=== PATIENT | male | born 1935 | race Caucasian/White ===

== ENCOUNTER 2019-05-14 09:46 | Observation (INO) ==
[2019-05-14] MEDS ORDERED: NORMAL SALINE 1,000 ML IV ONE (10:07)
[2019-05-14 10:29] LABS: Hematocrit 33.2 % (42.0-52.0); Hemoglobin 10.5 gm/dL (13.5-18.0); Mean Corpuscular Hemoglobin 29.4 pg (27-31); Mean Corpuscular Hgb Conc 31.6 g/dl (32-36); Mean Platelet Volume 8.9 fl (8-11.3); Neutrophil # 10.6 K/mm3 (1.3-6.0); Neutrophil % 75.8 % (42-75.0); Platelet Count 489 K/mm3 (150-450); Red Blood Count 3.57 M/mm3 (4.7-6.0); Red Cell Distribution Width 15.8 % (11.5-14.0); White Blood Count 13.9 K/mm3 (4.0-10.5)
[2019-05-14 10:43] LABS: Urine Bilirubin Negative (NEGATIVE); Urine Blood Negative /ul (NEGATIVE); Urine Ketone Negative (NEGATIVE); Urine Nitrite Negative (NEGATIVE); Urine Protein 15 mg/dL (NEGATIVE); Urine Specific Gravity 1.025 SP.GR. (1.005-1.030); Urine Urobilinogen Normal (NORMAL); Urine pH 5.5 pH (5.0-7.0)
[2019-05-14 10:43] LABS: Albumin * 3.1 gm/dl (3.4-5.0); Anion Gap 15.5 mmol/L (6.8-13.8); BUN/Creatinine Ratio 13.3 (9.0-21.6); Bilirubin, Total 0.2 mg/dL (0.0-1.1); CRP 0.5 mg/dL (0.0-0.9); Ca. Corrected For Albumin 9.2 mg/dL (8.4-10.2); Calcium * 8.8 mg/dL (7.9-10.9); Carbon Dioxide 26.8 mmol/L (24-32.6); Potassium 4.3 mmol/L (3.4-4.6); Total Protein 6.9 gm/dL (6.2-8.2)
[2019-05-14 11:07] LABS: Urine Appearance Clear (CLEAR); Urine Bacteria TRACE; Urine Color Yellow; Urine RBC None Seen /hpf (0-5); Urine WBC 0-5 /hpf (0-5)
[2019-05-14 11:25] LABS: Amylase * 21 U/L (25-115); Lipase 101 U/L (73-393)
[2019-05-14 11:42] LABS: Prothrombin Time (Patient) 14.3 Seconds (9.1-10.7)
[2019-05-14 11:51] LABS: INR 1.47 INR (0.92-1.08)
[2019-05-14] MEDS ORDERED: cefTRIAXone SODIUM 1,000 MG/100 ML BAG IV ONE (12:08)
--- NOTE | 2019-05-14 12:21 | ERNOTE ---
Medical Problem HPI - Narrative Date of Service: 05/14/19 - General Chief Complaint: General Assessment Time Seen by Provider: 05/14/19 09:55 Source: patient, EMS Exam Limitations: dementia - Immun/Allergies/Home Medications Immunizations: IMMUNIZATION HX Immunizations Up to Date No History of Influenza Vaccine More Information Required Hx Pneumococcal Vaccination More Information Required Allergies/Adverse Reactions: Allergies No Known Allergies Allergy (Verified 03/04/19 10:58) Home Medications: HOME MEDICATIONS Carvedilol [Coreg] 25 mg PO BID 03/04/19 [Last Taken Unknown] Cholecalciferol (Vitamin D3) [Vitamin D3] 1,000 unit PO DAILY 03/04/19 [Last Taken Unknown] Insulin Glargine,Hum.rec.anlog [Lantus] 35 units SC QAM 03/04/19 [Last Taken Unknown] Levothyroxine Sodium [Synthroid] 25 mcg PO DAILY 03/04/19 [Last Taken Unknown] amLODIPine BESYLATE [Norvasc] 10 mg PO DAILY 03/04/19 [Last Taken Unknown] metFORMIN HCL [Metformin HCl] 500 mg PO DAILY 03/04/19 [Last Taken Unknown] Acetaminophen [Tylenol] 650 mg PO Q6H PRN 05/14/19 [Last Taken Unknown] Aspirin [Aspirin EC] 81 mg PO DAILY 05/14/19 [Last Taken Unknown] Atorvastatin Calcium 40 mg PO DAILY 05/14/19 [Last Taken Unknown] Cinnamon Bark [Cinnamon] 500 mg PO BID 05/14/19 [Last Taken Unknown] Colchicine 0.6 mg PO DAILY 05/14/19 [Last Taken Unknown] Cyanocobalamin [Vitamin B-12] 500 mcg PO DAILY 05/14/19 [Last Taken Unknown] Diclofenac Sodium [Diclofenac 1% Topical Gel] 1 appl TOPICAL QID PRN 05/14/19 [Last Taken Unknown] Enoxaparin Sodium [Lovenox] 80 mg SC Q12H 05/14/19 [Last Taken Unknown] Ertapenem Sodium [Ertapenem] 1 gm IVP .Q24HRS 05/14/19 [Last Taken Unknown] Ferrous Sulfate 650 mg PO DAILY 05/14/19 [Last Taken Unknown] Finasteride [Proscar] 5 mg PO 05/14/19 [Last Taken Unknown] Furosemide 20 mg PO DAILY 05/14/19 [Last Taken Unknown] Hydrochlorothiazide [Hydrodiuril] 25 mg PO DAILY 05/14/19 [Last Taken Unknown] Hydrophilic Ointment [Aquaphilic Ointment] 1 appl TOPICAL BID PRN 05/14/19 [Last Taken Unknown] Isosorbide Mononitrate [Imdur] 30 mg PO DAILY 05/14/19 [Last Taken Unknown] Lidocaine [Lidoderm 5%] 1 patch TOPICAL BID PRN 05/14/19 [Last Taken Unknown] Losartan Potassium [Cozaar] 100 mg PO DAILY 05/14/19 [Last Taken Unknown] Nitroglycerin [Nitrostat] 0.4 mg SUBLINGUAL Q5MIN PRN 05/14/19 [Last Taken Unknown] Octreotide Acetate,Mi-Spheres [Sandostatin Lar Depot] 30 mg IM .Q28 DAYS 05/14/19 [Last Taken 05/02/19] Pantoprazole Sodium [Protonix] 40 mg PO DAILY 05/14/19 [Last Taken Unknown] Pregabalin [Lyrica] 75 mg PO BID 05/14/19 [Last Taken Unknown] Sodium Hypochlorite [Anasept Skin-Wound Cleanser] 237 ml IRRIGATION BID 05/14/19 [Last Taken Unknown] Tamsulosin HCl [Flomax] 0.8 mg PO DAILY 05/14/19 [Last Taken Unknown] Vancomycin HCl [Vancomycin] 1 gm IVP .Q24HRS 05/14/19 [Last Taken Unknown] Warfarin Sodium 3 mg PO MOWEFR 05/14/19 [Last Taken Unknown] Warfarin Sodium 4 mg PO SUTUTHSA 05/14/19 [Last Taken Unknown] oxyCODONE HCL/ACETAMINOPHEN [Percocet 5 MG/325 MG] 1 tab PO Q4H PRN 05/14/19 [Last Taken Unknown] traZODone HCL [Trazodone HCl] 50 mg PO HS PRN 05/14/19 [Last Taken Unknown] - History of Present History Narrative: patient presents ti ed with c/[facility] has had ongoing treatment forleg ulcers Timing: constant, getting worse Review of Systems - Review of Systems Constitutional: Present: See HPI EYE: Present: no symptoms reported ENT: Present: no symptoms reported Respiratory: Present: no symptoms reported Cardiology: Present: no symptoms reported Gastrointestinal/Abdominal: Present: no symptoms reported Genitourinary: Present: no symptoms reported Musculoskeletal: Present: no symptoms reported Skin: Present: See HPI Neurological: Present: no symptoms reported Endocrine: Present: no symptoms reported, unexplained weight loss Hematologic/Lymphatic: Present: no symptoms reported Psych: Present: no symptoms reported Medical History (Last Reviewed 03/04/19 @ 10:58 by Mayuri Hodge RN) CAD (coronary artery disease) Hx of diabetes mellitus Hx of hyperlipidemia Hx of primary hypertension Hx of thyroid cancer Surgical History: Surgical History (Last Reviewed 03/04/19 @ 10:58 by Mayuri Hodge RN) History of back surgery History of thyroid surgery Hx of heart surgery Hx of lymph node excision Status post femoral-popliteal bypass surgery Family History: Family History (Last Reviewed 03/04/19 @ 10:58 by Mayuri Hodge RN) Other No pertinent family history Social History: (Last Reviewed 03/04/19 @ 10:58 by Mayuri Hodge RN) Tobacco: Smoking Status: Former smoker Physical Exam - Physical Exam General Appearance: Present: mild distress Head Exam: Present: normal inspection, no evidence of injury Eye Exam: Normal inspection: bilateral, PERRL: bilateral, EOMI: bilateral Ears, Nose, Throat: Present: normal ENT inspection, normal pharynx Neck: Present: normal inspection, nontender Respiratory: Present: no respiratory distress, normal breath sounds, no accessory muscle use, chest nontender, lungs clear Cardiovascular/Chest: Present: regular rate, rhythm, no murmur, normal peripheral pulses Gastrointestinal/Abdominal: Present: normal bowel sounds, nontender, nondistended, no organomegaly Back Exam: Present: normal inspection, normal range of motion, no CVA tenderness, no vertebral tenderness Extremity Exam: Present: normal except - - healing ulcers omlower left leg and groin Neurological Exam: Present: alert, oriented, normal mood/affect, no motor/sensory deficits Skin Exam: Present: normal color, warm/dry Lymphatic Exam: Present: no adenopathy Progress - Date and Time Seen: Date and Time: 05/14/19 12:18 condition [email or web address] discussed with dr barriga, to admit to observation pending cultures and repeat lactic acid - Results and Orders Patient's Lab Results:: I have reviewed the patient's lab results. - Vital Signs Patient's Vital Signs:: I have reviewed the patient's vital signs. Vital Signs: Vital Signs 05/14/19 09:47 05/14/19 10:07 05/14/19 10:23 Temperature 36.0 C Pulse Rate 98 98 98 Respiratory Rate 17 13 11 L Blood Pressure 154/74 H 143/68 148/65 O2 Sat by Pulse Oximetry 98 96 97 05/14/19 10:37 05/14/19 10:58 05/14/19 11:14 Temperature Pulse Rate 97 109 H 97 Respiratory Rate 16 10 L 14 Blood Pressure 141/64 134/74 136/72 O2 Sat by Pulse Oximetry 98 99 98 05/14/19 11:29 05/14/19 11:43 Temperature Pulse Rate 94 96 Respiratory Rate 12 14 Blood Pressure 146/65 151/62 H O2 Sat by Pulse Oximetry 98 99 - EKG EKG #1 EKG: NSR - X-Ray X-Ray #1 X-Ray: chest Interpretation: Discd w/ radiologist - no acute process - CT/Ultrasound CT/Ultrasound Narrative: no acute process - Progress/Reassessment Chief Complaint: General Assessment Plan - Plan Plan: to admit to observation Departure Clinical Impression: Weakness, Ulcer of leg due to secondary diabetes mellitus - Departure Disposition: Still a patient Condition: Fair
[2019-05-14] MEDS ORDERED: NORMAL SALINE 1,000 ML IV PRN (12:46)
--- NOTE | 2019-05-14 15:00 | HP ---
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) CAD (coronary artery disease) Hx of diabetes mellitus Hx of hyperlipidemia Hx of primary hypertension Hx of thyroid cancer Surgical History: Surgical History (Last Updated 05/14/19 @ 14:34 by Sandra Peterson RN) History of back surgery History of thyroid surgery Hx of heart surgery Hx of lymph node excision Status post femoral-popliteal bypass surgery Onset Date: ~01/31/19 Family History: Family History (Last Updated 05/14/19 @ 14:34 by Sandra Peterson RN) Mother Diabetes Father Diabetes Social History: (Last Updated 05/14/19 @ 14:35 by Sandra Peterson RN) Tobacco: Smoking Status: Former smoker Years smoked: 40 Tobacco: How many years used: 40 how long ago did patient quit smokin passive smoking exposure: No second hand exposure: No Immunizations: IMMUNIZATION HX Immunizations Up to Date No History of Influenza Vaccine More Information Required Hx Pneumococcal Vaccination More Information Required Allergies/Adverse Reactions: Allergies Allergy/AdvReac Type Severity Reaction Status Date / Time No Known Allergies Allergy Verified 05/14/19 14:36 Home Medications: HOME MEDICATIONS Carvedilol [Coreg] 25 mg PO BID 03/04/19 [Last Taken Unknown] Cholecalciferol (Vitamin D3) [Vitamin D3] 1,000 unit PO DAILY 03/04/19 [Last Taken Unknown] Insulin Glargine,Hum.rec.anlog [Lantus] 35 units SC QAM 03/04/19 [Last Taken Unknown] Levothyroxine Sodium [Synthroid] 25 mcg PO DAILY 03/04/19 [Last Taken Unknown] amLODIPine BESYLATE [Norvasc] 10 mg PO DAILY 03/04/19 [Last Taken Unknown] metFORMIN HCL [Metformin HCl] 500 mg PO DAILY 03/04/19 [Last Taken Unknown] Acetaminophen [Tylenol] 650 mg PO Q6H PRN 05/14/19 [Last Taken Unknown] Aspirin [Aspirin EC] 81 mg PO DAILY 05/14/19 [Last Taken Unknown] Atorvastatin Calcium 40 mg PO DAILY 05/14/19 [Last Taken Unknown] Cinnamon Bark [Cinnamon] 500 mg PO BID 05/14/19 [Last Taken Unknown] Colchicine 0.6 mg PO DAILY 05/14/19 [Last Taken Unknown] Cyanocobalamin [Vitamin B-12] 500 mcg PO DAILY 05/14/19 [Last Taken Unknown] Diclofenac Sodium [Diclofenac 1% Topical Gel] 1 appl TOPICAL QID PRN 05/14/19 [Last Taken Unknown] Enoxaparin Sodium [Lovenox] 80 mg SC Q12H 05/14/19 [Last Taken Unknown] Ertapenem Sodium [Ertapenem] 1 gm IVP .Q24HRS 05/14/19 [Last Taken Unknown] Ferrous Sulfate 650 mg PO DAILY 05/14/19 [Last Taken Unknown] Finasteride [Proscar] 5 mg PO DAILY 05/14/19 [Last Taken Unknown] Furosemide 20 mg PO DAILY 05/14/19 [Last Taken Unknown] Hydrochlorothiazide [Hydrodiuril] 25 mg PO DAILY 05/14/19 [Last Taken Unknown] Hydrophilic Ointment [Aquaphilic Ointment] 1 appl TOPICAL BID PRN 05/14/19 [Last Taken Unknown] Isosorbide Mononitrate [Imdur] 30 mg PO DAILY 05/14/19 [Last Taken Unknown] Lidocaine [Lidoderm 5%] 1 patch TOPICAL BID PRN 05/14/19 [Last Taken Unknown] Losartan Potassium [Cozaar] 100 mg PO DAILY 05/14/19 [Last Taken Unknown] Nitroglycerin [Nitrostat] 0.4 mg SUBLINGUAL Q5MIN PRN 05/14/19 [Last Taken Unknown] Octreotide Acetate,Mi-Spheres [Sandostatin Lar Depot] 30 mg IM .Q28 DAYS 05/14/19 [Last Taken 05/02/19] Pantoprazole Sodium [Protonix] 40 mg PO DAILY 05/14/19 [Last Taken Unknown] Pregabalin [Lyrica] 75 mg PO BID 05/14/19 [Last Taken Unknown] Sodium Hypochlorite [Anasept Skin-Wound Cleanser] 237 ml IRRIGATION BID 05/14/19 [Last Taken Unknown] Tamsulosin HCl [Flomax] 0.8 mg PO DAILY 05/14/19 [Last Taken Unknown] Vancomycin HCl [Vancomycin] 1 gm IVP .Q24HRS 05/14/19 [Last Taken Unknown] Warfarin Sodium 3 mg PO MOWEFR 05/14/19 [Last Taken Unknown] Warfarin Sodium 4 mg PO SUTUTHSA 05/14/19 [Last Taken Unknown] oxyCODONE HCL/ACETAMINOPHEN [Percocet 5 MG/325 MG] 1 tab PO Q4H PRN 05/14/19 [Last Taken Unknown] traZODone HCL [Trazodone HCl] 50 mg PO HS PRN 05/14/19 [Last Taken Unknown] Exam - Exam Vital Signs: Vital Signs - Last Taken Temp 36.2 C 05/14/19 14:20 Pulse 99 05/14/19 14:20 Resp 20 05/14/19 14:20 BP 142/53 05/14/19 14:20 Pulse Ox 97 05/14/19 14:20 Diagnostic Studies: Abnormal Lab Results 05/14/19 05/14/19 05/14/19 Range/Units 10:20 10:20 10:20 WBC 13.9 H (4.0-10.5) K/mm3 RBC 3.57 L (4.7-6.0) M/mm3 Hgb 10.5 L (13.5-18.0) gm/dL Hct 33.2 L (42.0-52.0) % MCHC 31.6 L (32-36) g/dl RDW 15.8 H (11.5-14.0) % Plt Count 489 H (150-450) K/mm3 Immature Gran % (Auto) 0.50 H (0.001-0.429) % Immature Gran # (Auto) 0.07 H (0.000-0.0310) K/mm3 Neutrophils % 75.8 H (42-75.0) % Lymphocytes % 12.4 L (20-51) % Neutrophils # 10.6 H (1.3-6.0) K/mm3 Monocytes # 1.3 H (0.0-1.0) k/mm3 PT (9.1-10.7) Seconds INR (Anticoag Therapy) (0.92-1.08) INR Sodium 144 H (132-142) mmol/L Plasma Sodium 146 H (130-142) mmol/L Anion Gap 15.5 H (6.8-13.8) mmol/L Est GFR (Non-Af Amer) 57 L D (60-130) mL/min Random Glucose 234 H (70-110) mg/dL Lactic Acid, Venous 2.1 H (0.4-2.0) mmol/L Albumin 3.1 L (3.4-5.0) gm/dl Amylase (25-115) U/L Urine Protein (NEGATIVE) mg/dL 05/14/19 05/14/19 05/14/19 Range/Units 10:20 10:20 10:35 WBC (4.0-10.5) K/mm3 RBC (4.7-6.0) M/mm3 Hgb (13.5-18.0) gm/dL Hct (42.0-52.0) % MCHC (32-36) g/dl RDW (11.5-14.0) % Plt Count (150-450) K/mm3 Immature Gran % (Auto) (0.001-0.429) % Immature Gran # (Auto) (0.000-0.0310) K/mm3 Neutrophils % (42-75.0) % Lymphocytes % (20-51) % Neutrophils # (1.3-6.0) K/mm3 Monocytes # (0.0-1.0) k/mm3 PT 14.3 H (9.1-10.7) Seconds INR (Anticoag Therapy) 1.47 H (0.92-1.08) INR Sodium (132-142) mmol/L Plasma Sodium (130-142) mmol/L Anion Gap (6.8-13.8) mmol/L Est GFR (Non-Af Amer) (60-130) mL/min Random Glucose (70-110) mg/dL Lactic Acid, Venous (0.4-2.0) mmol/L Albumin (3.4-5.0) gm/dl Amylase 21 L (25-115) U/L Urine Protein 15 H (NEGATIVE) mg/dL Laboratory Results WBC 13.9 K/mm3 (4.0-10.5) H 05/14/19 10:20 RBC 3.57 M/mm3 (4.7-6.0) L 05/14/19 10:20 Hgb 10.5 gm/dL (13.5-18.0) L 05/14/19 10:20 Hct 33.2 % (42.0-52.0) L 05/14/19 10:20 MCV 93.0 fl (78-100) 05/14/19 10:20 MCH 29.4 pg (27-31) 05/14/19 10:20 MCHC 31.6 g/dl (32-36) L 05/14/19 10:20 RDW 15.8 % (11.5-14.0) H 05/14/19 10:20 Plt Count 489 K/mm3 (150-450) H 05/14/19 10:20 MPV 8.9 fl (8-11.3) 05/14/19 10:20 Immature Gran % (Auto) 0.50 % (0.001-0.429) H 05/14/19 10:20 Immature Gran # (Auto) 0.07 K/mm3 (0.000-0.0310) H 05/14/19 10:20 Neutrophils % 75.8 % (42-75.0) H 05/14/19 10:20 Lymphocytes % 12.4 % (20-51) L 05/14/19 10:20 Monocytes % 9.0 % (0.0-9) 05/14/19 10:20 Eosinophils % 1.6 % (0.0-3.0) 05/14/19 10:20 Basophils % 0.7 % (0.0-1.0) 05/14/19 10:20 Nucleated RBC % 0.0 k/mm3 (0-1) 05/14/19 10:20 Neutrophils # 10.6 K/mm3 (1.3-6.0) H 05/14/19 10:20 Lymphocytes # 1.73 k/mm3 (1.5-3.5) 05/14/19 10:20 Monocytes # 1.3 k/mm3 (0.0-1.0) H 05/14/19 10:20 Eosinophils # 0.2 k/mm3 (0.0-0.7) 05/14/19 10:20 Absolute Basophils 0.1 k/mm3 (0.0-0.1) 05/14/19 10:20 PT 14.3 Seconds (9.1-10.7) H 05/14/19 10:20 INR (Anticoag Therapy) 1.47 INR (0.92-1.08) H 05/14/19 10:20 PTT ([place]) 29.2 Seconds (24-32) 05/14/19 10:20 Sodium 144 mmol/L (132-142) H 05/14/19 10:20 Plasma Sodium 146 mmol/L (130-142) H 05/14/19 10:20 Potassium 4.3 mmol/L (3.4-4.6) 05/14/19 10:20 Chloride 106 mmol/L (97-106) 05/14/19 10:20 Carbon Dioxide 26.8 mmol/L (24-32.6) 05/14/19 10:20 Anion Gap 15.5 mmol/L (6.8-13.8) H 05/14/19 10:20 BUN 17 mg/dL (6-23) 05/14/19 10:20 Creatinine 1.28 mg/dL (0.4-1.4) 05/14/19 10:20 Est GFR (Non-Af Amer) 57 mL/min (60-130) L D 05/14/19 10:20 BUN/Creatinine Ratio 13.3 (9.0-21.6) 05/14/19 10:20 Random Glucose 234 mg/dL (70-110) H 05/14/19 10:20 Lactic Acid, Venous 1.8 mmol/L (0.4-2.0) 05/14/19 14:20 Calcium 8.8 mg/dL (7.9-10.9) 05/14/19 10:20 Calcium Adj for Albumin 9.2 mg/dL (8.4-10.2) 05/14/19 10:20 Total Bilirubin 0.2 mg/dL (0.0-1.1) 05/14/19 10:20 AST 31 U/L (0-48) 05/14/19 10:20 ALT 24 U/L (19-67) 05/14/19 10:20 Alkaline Phosphatase 93 U/L (50-170) 05/14/19 10:20 C-Reactive Prot, Quant 0.5 mg/dL (0.0-0.9) 05/14/19 10:20 Total Protein 6.9 gm/dL (6.2-8.2) 05/14/19 10:20 Albumin 3.1 gm/dl (3.4-5.0) L 05/14/19 10:20 Amylase 21 U/L (25-115) L 05/14/19 10:20 Lipase 101 U/L (73-393) 05/14/19 10:20 Urine Color Yellow 05/14/19 10:35 Urine Appearance Clear (CLEAR) 05/14/19 10:35 Urine pH 5.5 pH (5.0-7.0) 05/14/19 10:35 Ur Specific [place] 1.025 SP.GR. (1.005-1.030) 05/14/19 10:35 Urine Protein 15 mg/dL (NEGATIVE) H 05/14/19 10:35 Urine Glucose (UA) Negative mg/dL (NEGATIVE) 05/14/19 10:35 Urine Ketones Negative mg/dL (NEGATIVE) 05/14/19 10:35 Urine Blood Negative /ul (NEGATIVE) 05/14/19 10:35 Urine Nitrate Negative (NEGATIVE) 05/14/19 10:35 Urine Bilirubin Negative mg/dl (NEGATIVE) 05/14/19 10:35 Prot Sulfosalicylic Acd Negative mg/dL (0) 05/14/19 10:35 Urine Urobilinogen Normal EU/dl (NORMAL) 05/14/19 10:35 Ur Leukocyte Esterase Negative /ul (NEGATIVE) 05/14/19 10:35 Urine RBC None seen /hpf (0-5) 05/14/19 10:35 Urine WBC 0-5 /hpf (0-5) 05/14/19 10:35 Ur Epithelial Cells 0-5 /hpf (0-5) 05/14/19 10:35 Urine Bacteria Trace (NONE) 05/14/19 10:35 Urine Culture Comments No culture indicated 05/14/19 10:35
--- NOTE | 2019-05-14 15:26 | HP ---
Chief Complaint - Chief Complaint Date of Service: 05/14/19 Time of Service: 15:01 Chief Complaint: Altered, shaking History of Present Illness: 83-year-old male presented to the ER with altered mental status, rigors, chronic draining ulcer. Patient has significantly worsened from a cognitive standpoint over the last few days though per family he is normally "very sharp and with it". Patient recently discharged from the [facility] in [place] for this draining ulcer, home on IV abx through a pic line. He has an elevated WBC count, elevated lactic acid, and large amounts of purulent drainage from the thigh ulcer. Family very concerned that he is unable to answer routine questions that he normally has no issues with. He has been afebrile though he has been tachycardic. He was given a gram of rochephin in the ER. 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) CAD (coronary artery disease) Hx of diabetes mellitus Hx of hyperlipidemia Hx of primary hypertension Hx of thyroid cancer Surgical History: Surgical History (Last Updated 05/14/19 @ 14:34 by Sandra Peterson RN) History of back surgery History of thyroid surgery Hx of heart surgery Hx of lymph node excision Status post femoral-popliteal bypass surgery Onset Date: ~01/31/19 Family History: Family History (Last Updated 05/14/19 @ 14:34 by Sandra Peterson RN) Mother Diabetes Father Diabetes Social History: (Last Updated 05/14/19 @ 14:35 by Sandra Peterson RN) Tobacco: Smoking Status: Former smoker Years smoked: 40 Tobacco: How many years used: 40 how long ago did patient quit smokin passive smoking exposure: No second hand exposure: No Review Of Systems (GEN) - Review of Systems Generalized/Overall Review: Present: Weakness, Chills, Fatigue EENTM: Present: No Symptoms Reported Respiratory: Absent: Cough, Shortness of Breath Cardiac: Absent: Chest Pain, Edema Abdominal: Present: No Symptoms Reported Genitourinary: Present: No Symptoms Reported Musculoskeletal: Present: Muscle Pain Neurological: Absent: Numbness, Tingling, Weakness Skin: Present: Other - large purulent draining ulcer, left medial thigh near scrotum Immunizations: IMMUNIZATION HX Immunizations Up to Date No History of Influenza Vaccine More Information Required Hx Pneumococcal Vaccination More Information Required Allergies/Adverse Reactions: Allergies Allergy/AdvReac Type Severity Reaction Status Date / Time No Known Allergies Allergy Verified 05/14/19 14:36 Home Medications: HOME MEDICATIONS Carvedilol [Coreg] 25 mg PO BID 03/04/19 [Last Taken Unknown] Cholecalciferol (Vitamin D3) [Vitamin D3] 1,000 unit PO DAILY 03/04/19 [Last Taken Unknown] Insulin Glargine,Hum.rec.anlog [Lantus] 35 units SC QAM 03/04/19 [Last Taken Un known] Levothyroxine Sodium [Synthroid] 25 mcg PO DAILY 03/04/19 [Last Taken Unknown] amLODIPine BESYLATE [Norvasc] 10 mg PO DAILY 03/04/19 [Last Taken Unknown] metFORMIN HCL [Metformin HCl] 500 mg PO DAILY 03/04/19 [Last Taken Unknown] Acetaminophen [Tylenol] 650 mg PO Q6H PRN 05/14/19 [Last Taken Unknown] Aspirin [Aspirin EC] 81 mg PO DAILY 05/14/19 [Last Taken Unknown] Atorvastatin Calcium 40 mg PO DAILY 05/14/19 [Last Taken Unknown] Cinnamon Bark [Cinnamon] 500 mg PO BID 05/14/19 [Last Taken Unknown] Colchicine 0.6 mg PO DAILY 05/14/19 [Last Taken Unknown] Cyanocobalamin [Vitamin B-12] 500 mcg PO DAILY 05/14/19 [Last Taken Unknown] Diclofenac Sodium [Diclofenac 1% Topical Gel] 1 appl TOPICAL QID PRN 05/14/19 [Last Taken Unknown] Enoxaparin Sodium [Lovenox] 80 mg SC Q12H 05/14/19 [Last Taken Unknown] Ertapenem Sodium [Ertapenem] 1 gm IVP .Q24HRS 05/14/19 [Last Taken Unknown] Ferrous Sulfate 650 mg PO DAILY 05/14/19 [Last Taken Unknown] Finasteride [Proscar] 5 mg PO DAILY 05/14/19 [Last Taken Unknown] Furosemide 20 mg PO DAILY 05/14/19 [Last Taken Unknown] Hydrochlorothiazide [Hydrodiuril] 25 mg PO DAILY 05/14/19 [Last Taken Unknown] Hydrophilic Ointment [Aquaphilic Ointment] 1 appl TOPICAL BID PRN 05/14/19 [Last Taken Unknown] Isosorbide Mononitrate [Imdur] 30 mg PO DAILY 05/14/19 [Last Taken Unknown] Lidocaine [Lidoderm 5%] 1 patch TOPICAL BID PRN 05/14/19 [Last Taken Unknown] Losartan Potassium [Cozaar] 100 mg PO DAILY 05/14/19 [Last Taken Unknown] Nitroglycerin [Nitrostat] 0.4 mg SUBLINGUAL Q5MIN PRN 05/14/19 [Last Taken Unknown] Octreotide Acetate,Mi-Spheres [Sandostatin Lar Depot] 30 mg IM .Q28 DAYS 05/14/19 [Last Taken 05/02/19] Pantoprazole Sodium [Protonix] 40 mg PO DAILY 05/14/19 [Last Taken Unknown] Pregabalin [Lyrica] 75 mg PO BID 05/14/19 [Last Taken Unknown] Sodium Hypochlorite [Anasept Skin-Wound Cleanser] 237 ml IRRIGATION BID 05/14/19 [Last Taken Unknown] Tamsulosin HCl [Flomax] 0.8 mg PO DAILY 05/14/19 [Last Taken Unknown] Vancomycin HCl [Vancomycin] 1 gm IVP .Q24HRS 05/14/19 [Last Taken Unknown] Warfarin Sodium 3 mg PO MOWEFR 05/14/19 [Last Taken Unknown] Warfarin Sodium 4 mg PO SUTUTHSA 05/14/19 [Last Taken Unknown] oxyCODONE HCL/ACETAMINOPHEN [Percocet 5 MG/325 MG] 1 tab PO Q4H PRN 05/14/19 [Last Taken Unknown] traZODone HCL [Trazodone HCl] 50 mg PO HS PRN 05/14/19 [Last Taken Unknown] Exam - Exam Vital Signs: Vital Signs - Last Taken Temp 36.2 C 05/14/19 14:20 Pulse 99 05/14/19 14:20 Resp 20 05/14/19 14:20 BP 142/53 05/14/19 14:20 Pulse Ox 97 05/14/19 14:20 Constitutional: Present: Alert, Cooperative, Elderly. Absent: Oriented x3 - x2 ENT Exam: Present: hearing grossly normal. Absent: nasal congestion, nasal drainage Eye Exam: bilateral eye: normal inspection, PERRL Neck: Present: non-tender, supple Respiratory: Present: lungs clear, normal breath sounds Cardiovascular/Chest: Present: tachycardia. Absent: systolic murmur Abdomen: Present: Normal bowel sounds, soft, nontender Extremity: Present: swelling, other - healing incision left leg for fem/pop transfer meidal thigh to medial ankle. Ulcers at origin and distal location of incision. Origin of incision has large draining purulent ulcer Skin Exam: Present: diaphoresis. Absent: skin rash Neurologic: Present: alert. Absent: oriented x 3 - x2 Appearance: Present: impaired insight Eye contact: Present: avoids eye contact Diagnostic Studies: Abnormal Lab Results 05/14/19 05/14/19 05/14/19 Range/Units 10:20 10:20 10:20 WBC 13.9 H (4.0-10.5) K/mm3 RBC 3.57 L (4.7-6.0) M/mm3 Hgb 10.5 L (13.5-18.0) gm/dL Hct 33.2 L (42.0-52.0) % MCHC 31.6 L (32-36) g/dl RDW 15.8 H (11.5-14.0) % Plt Count 489 H (150-450) K/mm3 Immature Gran % (Auto) 0.50 H (0.001-0.429) % Immature Gran # (Auto) 0.07 H (0.000-0.0310) K/mm3 Neutrophils % 75.8 H (42-75.0) % Lymphocytes % 12.4 L (20-51) % Neutrophils # 10.6 H (1.3-6.0) K/mm3 Monocytes # 1.3 H (0.0-1.0) k/mm3 PT (9.1-10.7) Seconds INR (Anticoag Therapy) (0.92-1.08) INR Sodium 144 H (132-142) mmol/L Plasma Sodium 146 H (130-142) mmol/L Anion Gap 15.5 H (6.8-13.8) mmol/L Est GFR (Non-Af Amer) 57 L D (60-130) mL/min Random Glucose 234 H (70-110) mg/dL Lactic Acid, Venous 2.1 H (0.4-2.0) mmol/L Albumin 3.1 L (3.4-5.0) gm/dl Amylase (25-115) U/L Urine Protein (NEGATIVE) mg/dL 05/14/19 05/14/19 05/14/19 Range/Units 10:20 10:20 10:35 WBC (4.0-10.5) K/mm3 RBC (4.7-6.0) M/mm3 Hgb (13.5-18.0) gm/dL Hct (42.0-52.0) % MCHC (32-36) g/dl RDW (11.5-14.0) % Plt Count (150-450) K/mm3 Immature Gran % (Auto) (0.001-0.429) % Immature Gran # (Auto) (0.000-0.0310) K/mm3 Neutrophils % (42-75.0) % Lymphocytes % (20-51) % Neutrophils # (1.3-6.0) K/mm3 Monocytes # (0.0-1.0) k/mm3 PT 14.3 H (9.1-10.7) Seconds INR (Anticoag Therapy) 1.47 H (0.92-1.08) INR Sodium (132-142) mmol/L Plasma Sodium (130-142) mmol/L Anion Gap (6.8-13.8) mmol/L Est GFR (Non-Af Amer) (60-130) mL/min Random Glucose (70-110) mg/dL Lactic Acid, Venous (0.4-2.0) mmol/L Albumin (3.4-5.0) gm/dl Amylase 21 L (25-115) U/L Urine Protein 15 H (NEGATIVE) mg/dL Laboratory Results WBC 13.9 K/mm3 (4.0-10.5) H 05/14/19 10:20 RBC 3.57 M/mm3 (4.7-6.0) L 05/14/19 10:20 Hgb 10.5 gm/dL (13.5-18.0) L 05/14/19 10:20 Hct 33.2 % (42.0-52.0) L 05/14/19 10:20 MCV 93.0 fl (78-100) 05/14/19 10:20 MCH 29.4 pg (27-31) 05/14/19 10:20 MCHC 31.6 g/dl (32-36) L 05/14/19 10:20 RDW 15.8 % (11.5-14.0) H 05/14/19 10:20 Plt Count 489 K/mm3 (150-450) H 05/14/19 10:20 MPV 8.9 fl (8-11.3) 05/14/19 10:20 Immature Gran % (Auto) 0.50 % (0.001-0.429) H 05/14/19 10:20 Immature Gran # (Auto) 0.07 K/mm3 (0.000-0.0310) H 05/14/19 10:20 Neutrophils % 75.8 % (42-75.0) H 05/14/19 10:20 Lymphocytes % 12.4 % (20-51) L 05/14/19 10:20 Monocytes % 9.0 % (0.0-9) 05/14/19 10:20 Eosinophils % 1.6 % (0.0-3.0) 05/14/19 10:20 Basophils % 0.7 % (0.0-1.0) 05/14/19 10:20 Nucleated RBC % 0.0 k/mm3 (0-1) 05/14/19 10:20 Neutrophils # 10.6 K/mm3 (1.3-6.0) H 05/14/19 10:20 Lymphocytes # 1.73 k/mm3 (1.5-3.5) 05/14/19 10:20 Monocytes # 1.3 k/mm3 (0.0-1.0) H 05/14/19 10:20 Eosinophils # 0.2 k/mm3 (0.0-0.7) 05/14/19 10:20 Absolute Basophils 0.1 k/mm3 (0.0-0.1) 05/14/19 10:20 PT 14.3 Seconds (9.1-10.7) H 05/14/19 10:20 INR (Anticoag Therapy) 1.47 INR (0.92-1.08) H 05/14/19 10:20 PTT ([place]) 29.2 Seconds (24-32) 05/14/19 10:20 Sodium 144 mmol/L (132-142) H 05/14/19 10:20 Plasma Sodium 146 mmol/L (130-142) H 05/14/19 10:20 Potassium 4.3 mmol/L (3.4-4.6) 05/14/19 10:20 Chloride 106 mmol/L (97-106) 05/14/19 10:20 Carbon Dioxide 26.8 mmol/L (24-32.6) 05/14/19 10:20 Anion Gap 15.5 mmol/L (6.8-13.8) H 05/14/19 10:20 BUN 17 mg/dL (6-23) 05/14/19 10:20 Creatinine 1.28 mg/dL (0.4-1.4) 05/14/19 10:20 Est GFR (Non-Af Amer) 57 mL/min (60-130) L D 05/14/19 10:20 BUN/Creatinine Ratio 13.3 (9.0-21.6) 05/14/19 10:20 Random Glucose 234 mg/dL (70-110) H 05/14/19 10:20 Lactic Acid, Venous 1.8 mmol/L (0.4-2.0) 05/14/19 14:20 Calcium 8.8 mg/dL (7.9-10.9) 05/14/19 10:20 Calcium Adj for Albumin 9.2 mg/dL (8.4-10.2) 05/14/19 10:20 Total Bilirubin 0.2 mg/dL (0.0-1.1) 05/14/19 10:20 AST 31 U/L (0-48) 05/14/19 10:20 ALT 24 U/L (19-67) 05/14/19 10:20 Alkaline Phosphatase 93 U/L (50-170) 05/14/19 10:20 C-Reactive Prot, Quant 0.5 mg/dL (0.0-0.9) 05/14/19 10:20 Total Protein 6.9 gm/dL (6.2-8.2) 05/14/19 10:20 Albumin 3.1 gm/dl (3.4-5.0) L 05/14/19 10:20 Amylase 21 U/L (25-115) L 05/14/19 10:20 Lipase 101 U/L (73-393) 05/14/19 10:20 Urine Color Yellow 05/14/19 10:35 Urine Appearance Clear (CLEAR) 05/14/19 10:35 Urine pH 5.5 pH (5.0-7.0) 05/14/19 10:35 Ur Specific [place] 1.025 SP.GR. (1.005-1.030) 05/14/19 10:35 Urine Protein 15 mg/dL (NEGATIVE) H 05/14/19 10:35 Urine Glucose (UA) Negative mg/dL (NEGATIVE) 05/14/19 10:35 Urine Ketones Negative mg/dL (NEGATIVE) 05/14/19 10:35 Urine Blood Negative /ul (NEGATIVE) 05/14/19 10:35 Urine Nitrate Negative (NEGATIVE) 05/14/19 10:35 Urine Bilirubin Negative mg/dl (NEGATIVE) 05/14/19 10:35 Prot Sulfosalicylic Acd Negative mg/dL (0) 05/14/19 10:35 Urine Urobilinogen Normal EU/dl (NORMAL) 05/14/19 10:35 Ur Leukocyte Esterase Negative /ul (NEGATIVE) 05/14/19 10:35 Urine RBC None seen /hpf (0-5) 05/14/19 10:35 Urine WBC 0-5 /hpf (0-5) 05/14/19 10:35 Ur Epithelial Cells 0-5 /hpf (0-5) 05/14/19 10:35 Urine Bacteria Trace (NONE) 05/14/19 10:35 Urine Culture Comments No culture indicated 05/14/19 10:35 Assessment/Plan - Narrative Narrative: 83[facility] status, weakness, diaphoresis and draining ulcer of his right medial thigh. [facility] on IV [facility] given through PICC line. Discussed case with PA who recommend transfer back up to [place]. Currently afebrile and vital signs are stable though he still slightly tachycardic. 1 g of Rocephin given to the patient in the ER. Patient to be transferred this evening. - Assessment/Plan (1) Infected ulcer of skin Problem: Acute (2) Leukocytosis Problem: Acute (3) AMS (altered mental status) Problem: Acute (4) Weakness Problem: Acute
--- NOTE | 2019-05-14 18:38 | DS ---
Transfer Discharge Summary - Diagnosis(s)/Problems (1) Infected ulcer of skin Problem: Acute (2) Leukocytosis Problem: Acute (3) AMS (altered mental status) Problem: Acute (4) Weakness Problem: Acute - Course Description of Stay: 83-year-old male presented to the ER with altered mental status, rigors, chronic draining ulcer. Patient has significantly worsened from a cognitive standpoint over the last few days though per family he is normally "very sharp and with it". Patient recently discharged [facility] the [facility] in [place] for this draining ulcer, home on IV abx through a pic line. He has an elevated WBC count, elevated lactic acid, and large amounts of purulent drainage from the thigh ulcer. Family very concerned that he is unable to answer routine questions that he normally has no issues with. He has been afebrile though he has been tachycardic. He was given a gram of rochephin in the ER. [facility] recently [facility] placed in observation for altered mental status, weakness, diaphoresis and draining ulcer of his right medial thigh. Patient recently discharged from the [facility] less than 1 week earlier on IV an tibiotics given through PICC line. Discussed case with [facility] who recommend transfer back up to [place]. Currently afebrile and vital signs are stable though he still slightly tachycardic. 1 g of Rocephin given to the patient in the ER. Patient to be transferred this evening. Procedures Performed: none - Results and Findings Results and Findings: Laboratory Results - last 24 hr 05/14/19 05/14/19 05/14/19 10:20 10:20 10:20 WBC 13.9 H RBC 3.57 L Hgb 10.5 L Hct 33.2 L MCV 93.0 MCH 29.4 MCHC 31.6 L RDW 15.8 H Plt Count 489 H MPV 8.9 Immature Gran % (Auto) 0.50 H Immature Gran # (Auto) 0.07 H Neutrophils % 75.8 H Lymphocytes % 12.4 L Monocytes % 9.0 Eosinophils % 1.6 Basophils % 0.7 Nucleated RBC % 0.0 Neutrophils # 10.6 H Lymphocytes # 1.73 Monocytes # 1.3 H Eosinophils # 0.2 Absolute Basophils 0.1 PT INR (Anticoag Therapy) PTT ([place]) Sodium 144 H Plasma Sodium 146 H Potassium 4.3 Chloride 106 Carbon Dioxide 26.8 Anion Gap 15.5 H BUN 17 Creatinine 1.28 Est GFR (Non-Af Amer) 57 L D BUN/Creatinine Ratio 13.3 Random Glucose 234 H Lactic Acid, Venous 2.1 H Calcium 8.8 Calcium Adj for Albumin 9.2 Total Bilirubin 0.2 AST 31 ALT 24 Alkaline Phosphatase 93 C-Reactive Prot, Quant 0.5 Total Protein 6.9 Albumin 3.1 L Amylase Lipase Urine Color Urine Appearance Urine pH Ur Specific [place] Urine Protein Urine Glucose (UA) Urine Ketones Urine Blood Urine Nitrate Urine Bilirubin Prot Sulfosalicylic Acd Urine Urobilinogen Ur Leukocyte Esterase Urine RBC Urine WBC Ur Epithelial Cells Urine Bacteria Urine Culture Comments 05/14/19 05/14/19 05/14/19 10:20 10:20 10:20 WBC RBC Hgb Hct MCV MCH MCHC RDW Plt Count MPV Immature Gran % (Auto) Immature Gran # (Auto) Neutrophils % Lymphocytes % Monocytes % Eosinophils % Basophils % Nucleated RBC % Neutrophils # Lymphocytes # Monocytes # Eosinophils # Absolute Basophils PT 14.3 H INR (Anticoag Therapy) 1.47 H PTT ([place]) 29.2 Sodium Plasma Sodium Potassium Chloride Carbon Dioxide Anion Gap BUN Creatinine Est GFR (Non-Af Amer) BUN/Creatinine Ratio Random Glucose Lactic Acid, Venous Calcium Calcium Adj for Albumin Total Bilirubin AST ALT Alkaline Phosphatase C-Reactive Prot, Quant Total Protein Albumin Amylase 21 L Lipase 101 Urine Color Urine Appearance Urine pH Ur Specific [place] Urine Protein Urine Glucose (UA) Urine Ketones Urine Blood Urine Nitrate Urine Bilirubin Prot Sulfosalicylic Acd Urine Urobilinogen Ur Leukocyte Esterase Urine RBC Urine WBC Ur Epithelial Cells Urine Bacteria Urine Culture Comments 05/14/19 05/14/19 10:35 14:20 WBC RBC Hgb Hct MCV MCH MCHC RDW Plt Count MPV Immature Gran % (Auto) Immature Gran # (Auto) Neutrophils % Lymphocytes % Monocytes % Eosinophils % Basophils % Nucleated RBC % Neutrophils # Lymphocytes # Monocytes # Eosinophils # Absolute Basophils PT INR (Anticoag Therapy) PTT ([place]) Sodium Plasma Sodium Potassium Chloride Carbon Dioxide Anion Gap BUN Creatinine Est GFR (Non-Af Amer) BUN/Creatinine Ratio Random Glucose Lactic Acid, Venous 1.8 Calcium Calcium Adj for Albumin Total Bilirubin AST ALT Alkaline Phosphatase C-Reactive Prot, Quant Total Protein Albumin Amylase Lipase Urine Color Yellow Urine Appearance Clear Urine pH 5.5 Ur Specific [place] 1.025 Urine Protein 15 H Urine Glucose (UA) Negative Urine Ketones Negative Urine Blood Negative Urine Nitrate Negative Urine Bilirubin Negative Prot Sulfosalicylic Acd Negative Urine Urobilinogen Normal Ur Leukocyte Esterase Negative Urine RBC None seen Urine WBC 0-5 Ur Epithelial Cells 0-5 Urine Bacteria Trace Urine Culture Comments No culture indicated - Medications Medications: Active Medications Sodium Chloride (Sodium Chloride 0.9%) 1,000 mls @ 125 mls/hr IV .Q8H PRN PRN Reason: HYDRATION Stop: 06/13/19 12:47 Last Admin: 05/14/19 12:47 Dose: 125 mls/hr Documented by: Discontinued Medications Sodium Chloride (Sodium Chloride 0.9%) 1,000 mls @ 999 mls/hr IV .Q1H1M ONE Stop: 05/14/19 11:07 Last Infusion: 05/14/19 11:43 Dose: Infused Documented by: Ceftriaxone Sodium (Rocephin 1000 Mg Er Piggyback) 1,000 mg in 100 mls @ 200 mls/hr IV ONCE ONE Stop: 05/14/19 12:37 Last Infusion: 05/14/19 13:14 Dose: Infused Documented by: - Disposition Disposition: [facility] Facility Condition: Fair Discharge Date: 05/14/19 Discharge Time: 18:37
[2019-05-14 19:29] VITALS: BP 162/72
== END 2019-05-14 19:28 ==
LOC: MS 09:46 → ER 09:46 → MS 12:52
PROVIDERS: ADMIT Family Medicine; ATTEND Family Medicine
CPT/HCPCS: 36415; 70450; 71010; 71045; 80053; 81001; 82150; 83605; 83690; 85025; 85610; 85730; 86140; 87040; 87070; 87077; 87081; 87186; 93005; 96365; 99285